=== PATIENT | female | born 1975 | race Caucasian/White ===

== ENCOUNTER 2020-12-02 05:15 | Inpatient (IN) | payer MEDICAID, OTHER ==
[2020-12-02] VITALS (33 sets, daily range): BP systolic 104–160; BP diastolic 63–95
[~2020-12-02] VITALS: Ht 157.5 cm; Wt 76.4 kg
[2020-12-02] MEDS ORDERED: METHYLPREDNISOLONE SOD SUCC 125 MG/2 ML VIAL IV STA (05:19)
[2020-12-02] MEDS ORDERED: ALBUTEROL (0.083%) 2.5MG/3ML NEB HHN STA (05:19)
[2020-12-02] MEDS ORDERED: IPRATROPIUM BROMIDE (0.02%) 0.5MG/2.5ML NEB HHN STA (05:19)
[2020-12-02] MEDS ORDERED: LEVOFLOXACIN 750MG PREMIX 150 ML IV ONE (05:30)
[2020-12-02] MEDS ORDERED: MAGNESIUM 2 G PREMIX 50 ML IV ONE (05:30)
[2020-12-02 05:32] LABS: BASOPHILS % 0.5 % (0.0-2.0); EOSINOPHILS % 7.3 % (0.0-5.0); HEMATOCRIT. 39.7 % (36.0-48.0); HEMOGLOBIN. 13.1 g/dL (12.0-16.0); MEAN CORPUSCULAR HEMOGLOBIN 28.6 pg (28.0-32.0); MEAN CORPUSCULAR VOLUME 86.6 fL (81.0-99.0); MEAN PLATELET VOLUME 7.5 fl (7.4-10.4); MONOCYTES % 6.6 % (2.0-8.0); NEUTROPHILS % 61.6 % (40.0-76.0); PLATELET 287 x1000/uL (130-400); RED BLOOD CELL COUNT 4.58 mill/uL (4.2-5.4); RED CELL DISTRIBUTION WIDTH 16.6 % (11.6-14.6)
[2020-12-02 05:39] LABS: CHLORIDE 108 mEq/L (98-107)
[2020-12-02] MEDS ORDERED: EPINEPHRINE 1:1000 1 MG/ML AMP IM ONE (05:45)
[2020-12-02] MEDS ORDERED: IPRATROPIUM/ALBUTEROL 0.5-3(2.5)MG/3ML NEB HHN ONE (07:00)
[2020-12-02] MEDS ORDERED: LORAZEPAM 2MG/ML CPJ IV ONE (07:00)
[2020-12-02 08:44] LABS: BG BASE EXCESS -4.1 mmol/L (-2.0-2.0); BG CARBOXYHEMOGLOBIN 0.4 % (0.5-1.5); BG DEOXYHEMOGLOBIN 0.4 % (0.0-5.0); BG FRACTION INSPIRED OXYGEN 50; BG HCO3 ACT 20.4 mmol/L (22.0-26.0); BG METHEMOGLOBIN 0.3 % (0.0-1.5); BG OXYGEN SATURATION 99.6 % (92.0-98.5); BG OXYHEMOGLOBIN 98.9 % (94.0-97.0); BG PCO2 35.4 mmHg (35.0-45.0); BG PH 7.378 (7.350-7.450); BG PO2 255.1 mmHg (75.0-100.0); BG TOTAL HEMOGLOBIN 13.6 g/dL (12.0-18.0); BG VENT MODE MASK - BIPAP
[2020-12-02 09:31] LABS: HEMATOCRIT. 37.2 % (36.0-48.0); HEMOGLOBIN. 12.6 g/dL (12.0-16.0); MEAN CORPUSCULAR HEMOGLOBIN 28.8 pg (28.0-32.0); MEAN CORPUSCULAR VOLUME 84.9 fL (81.0-99.0); MEAN PLATELET VOLUME 7.3 fl (7.4-10.4); PLATELET 279 x1000/uL (130-400); RED BLOOD CELL COUNT 4.38 mill/uL (4.2-5.4); RED CELL DISTRIBUTION WIDTH 16.2 % (11.6-14.6)
[2020-12-02 09:42] LABS: PARTIAL THROMBOPLASTIN TIME 26.5 sec (23.4-31.0); PROTHROMBIN TIME 10.7 sec (9.6-11.0)
[2020-12-02] MEDS ORDERED: NA PHOS,M-B/NA PHOS,DI-BA ENEMA 118ML PR PRN (09:45)
[2020-12-02] MEDS ORDERED: METHYLPREDNISOLONE SOD SUCC 125 MG/2 ML VIAL IV SCH (09:45)
[2020-12-02] MEDS ORDERED: DIPHENHYDRAMINE 50MG/ML VIAL IV PRN (09:45)
[2020-12-02] MEDS ORDERED: IPRATROPIUM/ALBUTEROL 0.5-3(2.5)MG/3ML NEB NEB PRN (09:45)
[2020-12-02] MEDS ORDERED: CLONIDINE 0.1MG TABLET PO PRN (09:45)
[2020-12-02] MEDS ORDERED: DEXT 5%/0.45% NACL 1000ML 1,000 ML IV SCH (09:45)
[2020-12-02] MEDS ORDERED: DEXTROSE 50% WATER 50ML SYRINGE IV PRN (10:30)
[2020-12-02 11:05] LABS: PLATELET ESTIMATE NORMAL
[2020-12-02] MEDS ORDERED: PREN1TAB78 MT (11:21)
[2020-12-02 11:39] LABS: CHLORIDE 106 mEq/L (98-107)
[2020-12-02] MEDS: BLOOD SUGAR DIAGNOSTIC STRIP TEST SCH ×2 (12:00→17:00)
[2020-12-02] MEDS: INSULIN LISPRO 100 UNITS/ML SUBCUT SCH ×2 (12:00→17:00)
[2020-12-02] MEDS ORDERED: INSULIN LISPRO 100 UNITS/ML SUBCUT SCH (12:00)
[2020-12-02] MEDS ORDERED: ALBUTEROL (0.5%) 2.5MG/0.5ML NEB HHN PRN (12:15)
[2020-12-02] MEDS ORDERED: ALBUTEROL (0.083%) 2.5MG/3ML NEB HHN PRN (12:30)
[2020-12-02 13:22] LABS: HEPATITIS B SURFACE ANTIGEN NEGATIVE
[2020-12-02 14:11] LABS: CLARITY URINE CLEAR (CLEAR); COLOR URINE YELLOW (YELLOW); KETONES URINE 3+ (NEGATIVE); LEUKOCYTE ESTERASE URINE NEGATIVE (NEGATIVE); NITRITE URINE NEGATIVE (NEGATIVE); OCCULT BLOOD URINE NEGATIVE (NEGATIVE); PH URINE 5.5 (4.5-8.0); PROTEIN URINE NEGATIVE (NEGATIVE); SPECIFIC GRAVITY URINE 1.021 (1.005-1.030); UROBILINOGEN URINE 0.2 E.U./dL (0.2-1.0)
[2020-12-02 14:31] LABS: *COCAINE SCREEN URINE NEGATIVE (NEGATIVE)
[2020-12-02 14:33] LABS: *AMPHETAMINES SCREEN URINE NEGATIVE (NEGATIVE); *BARBITURATES SCREEN URINE NEGATIVE (NEGATIVE); *BENZODIAZEPINES SCREEN URINE NEGATIVE (NEGATIVE); CANNABINOID URINE SCREEN NEGATIVE (NEGATIVE); METHADONE URINE SCREEN NEGATIVE (NEGATIVE); PHENCYCLIDINE URINE SCREEN NEGATIVE (NEGATIVE)
[2020-12-02 14:35] LABS: OPIATES URINE SCREEN PRESUMTIVE POSITIVE (NEGATIVE)
[2020-12-02] MEDS: METHYLPREDNISOLONE SOD SUCC 40 MG/ML VIAL IV SCH ×2 (15:20→21:46)
[2020-12-02] MEDS: ACETAMINOPHEN 325MG TABLET PO PRN (15:20)
[2020-12-03] VITALS (17 sets, daily range): BP systolic 117–152; BP diastolic 38–84
[2020-12-03] MEDS: BLOOD SUGAR DIAGNOSTIC STRIP TEST SCH ×4 (00:12→17:41)
[2020-12-03] MEDS: INSULIN LISPRO 100 UNITS/ML SUBCUT SCH ×4 (00:19→17:41)
[2020-12-03] MEDS: ALBUTEROL (0.083%) 2.5MG/3ML NEB HHN SCH ×6 (00:51→21:20)
[2020-12-03] MEDS: METHYLPREDNISOLONE SOD SUCC 40 MG/ML VIAL IV SCH ×2 (03:45→09:24)
[2020-12-03] MEDS: LEVOFLOXACIN 500MG PREMIX 100 ML IV SCH (06:08)
[2020-12-03 06:46] LABS: BASOPHILS % 0.2 % (0.0-2.0); EOSINOPHILS % 0.7 % (0.0-5.0); HEMATOCRIT. 36.9 % (36.0-48.0); HEMOGLOBIN. 12.5 g/dL (12.0-16.0); LYMPHOCYTES % 7.2 % (20.0-50.0); MEAN CORPUSCULAR HEMOGLOBIN 28.7 pg (28.0-32.0); MEAN CORPUSCULAR VOLUME 84.9 fL (81.0-99.0); MEAN PLATELET VOLUME 7.4 fl (7.4-10.4); MONOCYTES % 2.9 % (2.0-8.0); PLATELET 282 x1000/uL (130-400); RED BLOOD CELL COUNT 4.35 mill/uL (4.2-5.4)
[2020-12-03 07:05] LABS: CHLORIDE 108 mEq/L (98-107)
[2020-12-03 07:15] LABS: LDL CHOLESTEROL 110 mg/dL (5-100)
[2020-12-03 07:17] LABS: HDL CHOLESTEROL 80 mg/dL (40-59); T4 FREE 0.89 ng/dL (0.76-1.46)
[2020-12-03] MEDS: ONDANSETRON HCL 4MG/2ML INJ IV PRN (07:53)
[2020-12-03] MEDS: ACETAMINOPHEN 325MG TABLET PO PRN ×2 (07:53→22:55)
[2020-12-03] MEDS ORDERED: METHYLPREDNISOLONE SOD SUCC 40 MG/ML VIAL IV SCH (17:45)
[2020-12-04] VITALS (13 sets, daily range): BP systolic 114–151; BP diastolic 67–105
[2020-12-04] MEDS: BLOOD SUGAR DIAGNOSTIC STRIP TEST SCH ×4 (00:25→16:57)
[2020-12-04] MEDS: ALBUTEROL (0.083%) 2.5MG/3ML NEB HHN SCH ×4 (00:54→14:34)
[2020-12-04] MEDS: ONDANSETRON HCL 4MG/2ML INJ IV PRN (02:58)
[2020-12-04] MEDS: LEVOFLOXACIN 500MG PREMIX 100 ML IV SCH (05:33)
[2020-12-04] MEDS: INSULIN LISPRO 100 UNITS/ML SUBCUT SCH ×4 (06:00→16:57)
[2020-12-04] MEDS ORDERED: PREDNISONE 20MG TABLET PO SCH (09:00)
[2020-12-04 09:30] LABS: BASOPHILS % 0.3 % (0.0-2.0); EOSINOPHILS % 0.7 % (0.0-5.0); HEMOGLOBIN. 12.4 g/dL (12.0-16.0); LYMPHOCYTES % 13.2 % (20.0-50.0); MEAN CORPUSCULAR HEMOGLOBIN 28.9 pg (28.0-32.0); MEAN CORPUSCULAR VOLUME 86.4 fL (81.0-99.0); MEAN PLATELET VOLUME 7.5 fl (7.4-10.4); MONOCYTES % 5.3 % (2.0-8.0); NEUTROPHILS % 80.5 % (40.0-76.0); PLATELET 286 x1000/uL (130-400); RED BLOOD CELL COUNT 4.28 mill/uL (4.2-5.4); RED CELL DISTRIBUTION WIDTH 17.2 % (11.6-14.6)
[2020-12-04 12:45] LABS: CHLORIDE 106 mEq/L (98-107)
[2020-12-04] MEDS: PREDNISONE 20MG TABLET PO SCH (17:16)
[2020-12-04] MEDS: IPRATROPIUM BROMIDE (0.02%) 0.5MG/2.5ML NEB HHN SCH ×2 (17:51→21:15)
[2020-12-04] MEDS: BUDESONIDE 0.5MG/2ML NEB HHN SCH (17:51)
[2020-12-05] VITALS (10 sets, daily range): BP systolic 114–154; BP diastolic 61–88
[2020-12-05] MEDS: BLOOD SUGAR DIAGNOSTIC STRIP TEST SCH ×4 (00:17→17:06)
[2020-12-05] MEDS: ACETYLCYSTEINE 100MG/ML 10% VIAL 4ML INH SCH ×3 (01:36→16:50)
[2020-12-05] MEDS: IPRATROPIUM BROMIDE (0.02%) 0.5MG/2.5ML NEB HHN SCH ×5 (01:38→16:50)
[2020-12-05] MEDS: BUDESONIDE 0.5MG/2ML NEB HHN SCH ×2 (04:34→08:54)
[2020-12-05] MEDS: ACETAMINOPHEN 325MG TABLET PO PRN (04:39)
[2020-12-05] MEDS: INSULIN LISPRO 100 UNITS/ML SUBCUT SCH ×4 (06:00→17:06)
[2020-12-05] MEDS: LEVOFLOXACIN 500MG PREMIX 100 ML IV SCH (06:14)
[2020-12-05] MEDS: PREDNISONE 20MG TABLET PO SCH ×2 (08:12→16:07)
[2020-12-05] MEDS: DOCUSATE SODIUM 100MG CAPSULE PO SCH ×2 (10:15→16:07)
[2020-12-05] MEDS ORDERED: P20 MT (14:25)
[2020-12-05] MEDS ORDERED: BUDE90AE INH (14:25)
== END 2020-12-05 17:35 | disposition home or self-care (01) | DRG 566 ==
LOC: ER 05:15 → MICUSO 05:56 → ENRESERV 08:54 → 3WST 12-03 03:30
PROVIDERS: ADMIT Internal Medicine; ATTEND Internal Medicine
PROC: 5A09357 Assistance with Respiratory Ventilation, Less than 24 Consecutive Hours, Continuous Positive Airway Pressure (ICD-10-PCS; principal; 2020-12-02)
DX: O99.512 Diseases of the respiratory system complicating pregnancy, second trimester (principal); J96.01 Acute respiratory failure with hypoxia; E11.9 Type 2 diabetes mellitus without complications; J45.41 Moderate persistent asthma with (acute) exacerbation; J45.42 Moderate persistent asthma with status asthmaticus; E78.00 Pure hypercholesterolemia, unspecified; D72.829 Elevated white blood cell count, unspecified; E78.5 Hyperlipidemia, unspecified; O99.891 Other specified diseases and conditions complicating pregnancy; R07.89 Other chest pain; R00.0 Tachycardia, unspecified; Z20.822 Contact with and (suspected) exposure to COVID-19; O24.312 Unspecified pre-existing diabetes mellitus in pregnancy, second trimester; O10.912 Unspecified pre-existing hypertension complicating pregnancy, second trimester; O99.112 Other diseases of the blood and blood-forming organs and certain disorders involving the immune mechanism complicating pregnancy, second trimester; O99.282 Endocrine, nutritional and metabolic diseases complicating pregnancy, second trimester; Z3A.25 25 weeks gestation of pregnancy
CPT/HCPCS: 36415; 36600; 71045; 76805; 80048; 80053; 80061; 80305; 81003; 82375; 82805; 82962; 83036; 83880; 84439; 84443; 84484; 85025; 86592; 86703; 86762; 86850; 86900; 87340; 87426; 87804; 93005; 94640; 94644; 94660; 99291; J1815; J1956; J2060; J2405; J2920; J2930; J3475; J3490; J7512; J7608; J7626